=== PATIENT | female | born 1975 | race African-American/Black ===

== ENCOUNTER 2017-03-20 14:27 | Emergency (ER) | payer OTHER ==
[2015-02-03 12:33] VITALS: BP 150/86
== END 2017-03-20 15:51 | disposition left against medical advice (07) ==
LOC: ER 14:27
DX: R07.81 Pleurodynia (principal); Z53.21 Procedure and treatment not carried out due to patient leaving prior to being seen by health care provider

== ENCOUNTER 2018-08-13 08:40 | Emergency (ER) | payer OTHER ==
[~2018-08-13] VITALS: Ht 160 cm; Wt 92.1 kg
[2018-08-13 08:51] VITALS: BP 158/87
--- NOTE | 2018-08-13 09:24 | PHYS DOC ---
Past Medical History Past Medical History: Anemia, Hypertension, STD Past Surgical History: No Surgical History, Other Additional Past Surgical Histo: Laparoscopy Alcohol Use: Occasionally Drug Use: None Adult General Chief Complaint Chief Complaint: PELVIC PAIN HPI HPI Patient is a 43 year old female who presents with vaginal irritation, odor, and pelvic pain. She states that she has been sexually active with her partner for 6 months and that they have used condoms consistently until 3 days ago when they had unprotected intercourse for the first time. She is now concerned that "he gave me something" and states that she has experienced irritation, nondescript vaginal odor and right sided pelvic pain since that time. She is unsure if there has been any vaginal discharge but denies any bleeding. She has had a total of 5 lifetime sexual partners and has a remote history of being treated for what she thinks was chlamydia in the past. Patient denies nausea, vomiting or diarrhea but has had chronic constipation and fatigue that she believes is due to her iron deficient anemia. Her last menstrual period was last week and she does not use any contraceptives aside from when her and her partner use condoms. Review of Systems Review of Systems Constitutional: Reports fatigue. Denies fever or chills [] HENT: Denies nasal congestion or sore throat [] Respiratory: Denies cough or shortness of breath [] Cardiovascular: Denies chest pain or palpitations [] GI: Reports RLQ abdominal/pelvic pain and constipation. Denies nausea, vomiting, diarrhea. [] : Denies dysuria or hematuria [] Musculoskeletal: Denies back pain or joint pain [] Neurologic: Denies headache, focal weakness or sensory changes. [] Complete review of systems found to be within normal limits, except as documented in this note. Current Medications Current Medications Current Medications Medications (Trade) Dose Ordered Sig/Annalisa Start Time Stop Time Status Last Admin Dose Admin Azithromycin (Zithromax) 1,000 mg 1X ONCE 08/13/18 09:45 08/13/18 09:46 DC 08/13/18 09:48 1,000 MG Ceftriaxone Sodium (Rocephin Im) 250 mg 1X ONCE 08/13/18 09:45 08/13/18 09:46 DC 08/13/18 09:48 250 MG Ketorolac Tromethamine (Toradol 30mg Vial) 30 mg 1X ONCE 08/13/18 09:30 08/13/18 09:31 DC 08/13/18 09:48 30 MG Metronidazole (Flagyl) 500 mg 1X ONCE 08/13/18 11:15 08/13/18 11:21 DC 08/13/18 11:23 500 MG Allergies Allergies Allergies Coded Allergies Type Severity Reaction Last Updated Verified Penicillins Allergy Intermediate 08/13/18 Yes Physical Exam Physical Exam Constitutional: Well developed, well nourished, no acute distress, non-toxic appearance. [] HENT: Normocephalic, atraumatic, oropharynx moist [] Eyes: EOMI, conjunctiva normal, no discharge. [] Cardiovascular:Heart rate regular rhythm, no murmur [] Lungs & Thorax: Bilateral breath sounds clear to auscultation [] Abdomen: Bowel sounds present. Abdomen soft without rebound, rigidity, or guarding. Tenderness to palpation in RLQ, negative McBurney's point. [] Skin: Warm, dry, no erythema, no rash. [] Extremities: Radial pulses +2 b/l, dorsalis pedis +2 b/l, no swelling noted [] Neurologic: Alert and oriented, normal motor function, normal sensory function, no focal deficits noted. [] Psychologic: Affect normal, judgement normal, mood normal. 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 External genitalia normal. Vaginal mucosa well rugated without erythema. White mucoid discharge noted. Cervical os visualized without bleeding or cervicitis. No cervical motion tenderness. Adnexal tenderness present on right more than left. Ovaries palpated b/l. No adnexal masses palpated. Current Patient Data Vital Signs Vital Signs Date Time Temp Pulse Resp B/P (MAP) Pulse Ox O2 Delivery O2 Flow Rate FiO2 08/13/18 08:51 98.0 109 18 158/87 (110) 98 Room Air 98.0 Lab Values Laboratory Tests Test 08/13/18 09:15 08/13/18 10:00 POC Urine HCG, Qualitative Hcg negative (Negative) Urine Collection Type Unknown Urine Color Yellow Urine Clarity Clear Urine pH 6.0 Urine Specific [place] 1.025 Urine Protein Negative mg/dL (NEG-TRACE) Urine Glucose (UA) Negative mg/dL (NEG) Urine Ketones (Stick) Negative mg/dL (NEG) Urine Blood Negative (NEG) Urine Nitrite Negative (NEG) Urine Bilirubin Negative (NEG) Urine Urobilinogen Dipstick 1.0 mg/dL (0.2 mg/dL) Urine Leukocyte Esterase Trace (NEG) Urine RBC 0 /HPF (0-2) Urine WBC 1-4 /HPF (0-4) Urine Squamous Epithelial Cells Many /LPF Urine Bacteria Few /HPF (0-FEW) Urine Mucus Marked /LPF Microbiology 08/13/18 Wet Prep - Final, Complete Microbiology 08/13/18 Wet Prep - Final, Complete EKG EKG [] Radiology/Procedures Radiology/Procedures PROCEDURE: PELVIS W/TV Pelvic ultrasound to include transabdominal and transvaginal imaging 08/13/2018 CLINICAL HISTORY: Adnexal pain, right greater than left. TECHNIQUE: Using the distended urinary bladder as a sonographic window, a real-time ultrasound examination of the pelvis was performed. Additionally in an attempt to better evaluate the uterus and adnexa, a transvaginal ultrasound study was performed. Multiple images were obtained. FINDINGS: The uterus is within normal limits in size and echogenicity. It measures 9.0 x 6.2 x 4.4 cm in longitudinal, transverse, and AP dimensions. The endometrial echo complex measures 7 mm in thickness which is within normal limits. Both ovaries are within normal limits in size. The right ovary measures 3.4 x 2.2 x 2.8 cm in size. Left ovary measures 2.9 x 2.3 x 1.5 cm in size. Within the left ovary a 1.6 cm dominant follicle is seen. No adnexal mass is noted. No free fluid is seen. IMPRESSION: Negative study. Electronically signed by: Tutu López MD (08/13/2018 10:27 AM) [facility] Course & Med Decision Making Course & Med Decision Making Pertinent Labs and Imaging studies reviewed. (See chart for details) Patient is a 43 year old female presenting with vaginal irritation and odor following unprotected sex with a new partner 3 days ago. Pelvic exam revealed white vaginal discharge and mild right adnexal tenderness. UA negative. Wet mount showed altered bacterial eliecer suggestive of bacterial vaginosis. Transvaginal ultrasound negative. Patient opted to receive one time doses of azithromycin and ceftriaxone given her past history of chlamydia and current symptoms. She will be discharged home with Rx for metronidazole for suspected bacterial vaginosis and instructed to abstain from intercourse until completion of antibiotics. Patient instructed to followup with Dr. Hammer. Patient stable for discharge with outpatient follow-up with PCP/[facility]. Discussed findings and plan with patient, who acknowledges understanding and agreement. [] Dragon Disclaimer Dragon Disclaimer This electronic medical record was generated, in whole or in part, using a voice recognition dictation system. Departure Departure Impression: Primary Impression: Vaginal discharge Additional Impression: Pelvic pain Disposition: HOME, SELF-CARE Condition: STABLE Referrals: KAIA BIRD MD (PCP) MADELIN HAMMER Jr, MD Patient Instructions: Bacterial Vaginosis, [id number], Pelvic Pain, Female, [id number], Sexually Transmitted Disease, [id number] Additional Instructions: Use over the counter Tylenol and Ibuprofen for pain or discomfort Scripts Metronidazole (FLAGYL) 500 Mg Tablet 500 MG PO BID, #14 TAB Prov: WINSTON IVEY DO 08/13/18 Problem Qualifiers WINSTON IVEY DO August 13, 2018 09:24
[2018-08-13] MEDS ORDERED: KETOROLAC 30 MG/ML VIAL. IM ONE (09:30)
[2018-08-13] MEDS ORDERED: AZITHROMYCIN 250 MG TABLET. PO ONE (09:45)
[2018-08-13] MEDS ORDERED: cefTRIAXone IM 250 MG VIAL IM ONE (09:45)
--- NOTE | 2018-08-13 10:30 | RAD ---
Pelvic ultrasound to include transabdominal and transvaginal imaging 08/13/2018 CLINICAL HISTORY: Adnexal pain, right greater than left. TECHNIQUE: Using the distended urinary bladder as a sonographic window, a real-time ultrasound examination of the pelvis was performed. Additionally in an attempt to better evaluate the uterus and adnexa, a transvaginal ultrasound study was performed. Multiple images were obtained. FINDINGS: The uterus is within normal limits in size and echogenicity. It measures 9.0 x 6.2 x 4.4 cm in longitudinal, transverse, and AP dimensions. The endometrial echo complex measures 7 mm in thickness which is within normal limits. Both ovaries are within normal limits in size. The right ovary measures 3.4 x 2.2 x 2.8 cm in size. Left ovary measures 2.9 x 2.3 x 1.5 cm in size. Within the left ovary a 1.6 cm dominant follicle is seen. No adnexal mass is noted. No free fluid is seen. IMPRESSION: Negative study. Electronically signed by: Tutu López MD (08/13/2018 10:27 AM) [facility]
[2018-08-13] MEDS ORDERED: METR500T PO (11:10)
[2018-08-13 11:11] LABS: BILIRUBIN,URINE NEGATIVE (NEG); CLARITY,URINE CLEAR; COLOR,URINE YELLOW; NITRITE,URINE NEGATIVE (NEG); PROTEIN,URINE NEGATIVE (NEG-TRACE)
[2018-08-13 11:14] LABS: BACTERIA,URINE FEW /HPF (0-FEW); RBC,URINE 0 /HPF (0-2); SQUAMOUS EPITHELIAL CELL,UR MANY /LPF
[2018-08-13] MEDS ORDERED: metroNIDAZOLE 500 MG TABLET PO ONE (11:15)
[2018-08-15 13:15] LABS: GC PROBE Negative (Negative)
== END 2018-08-13 11:26 | disposition home or self-care (01) ==
LOC: ER 08:40
DX: N89.8 Other specified noninflammatory disorders of vagina (principal); K59.00 Constipation, unspecified; I10 Essential (primary) hypertension; Z86.2 Personal history of diseases of the blood and blood-forming organs and certain disorders involving the immune mechanism; Z88.0 Allergy status to penicillin
CPT/HCPCS: 76830; 76856; 81001; 81025; 87086; 87491; 87591; 96372; 99285; J0696; J1885; Q0111; Q0144

== ENCOUNTER → 2019-05-14 | Outpatient (CLI) | payer MEDICAID, OTHER ==
[~2019-05-14] MED LIST: METR500T PO
[2019-05-14 10:37] LABS: BASO % 1 % (0-3); EOS # 0.1 x10^3/uL (0.0-0.7); EOS % 3 % (0-3); HEMATOCRIT 36.4 % (36.0-47.0); HEMOGLOBIN 11.6 g/dL (12.0-15.5); LYMPH # 1.6 x10^3/uL (1.0-4.8); LYMPH % 37 % (24-48); MEAN CORPUSCULAR HEMOGLOBIN 26 pg (25-35); MEAN CORPUSCULAR HGB CONC 32 g/dL (31-37); MEAN CORPUSCULAR VOLUME 82 fL (79-100); MONO # 0.3 x10^3/uL (0.0-1.1); MONO % 8 % (0-9); NEUT # 2.2 x10^3/uL (1.8-7.7); NEUT % 51 % (31-73); PLATELET COUNT 271 x10^3/uL (140-400); RED BLOOD COUNT 4.42 x10^6/uL (3.50-5.40); RED CELL DISTRIBUTION WIDTH 14.6 % (11.5-14.5); WHITE BLOOD COUNT 4.3 x10^3/uL (4.0-11.0)
[2019-05-14 11:07] LABS: ALBUMIN 3.7 g/dL (3.4-5.0); ALBUMIN/GLOBULIN RATIO 0.9 (1.0-1.7); CALCIUM 9.4 mg/dL (8.5-10.1); CREATININE 0.7 mg/dL (0.6-1.0); GFR 109.5; POTASSIUM 3.8 mmol/L (3.5-5.1); TOTAL BILIRUBIN 0.4 mg/dL (0.2-1.0)
[2019-05-14 11:09] LABS: CHOLESTEROL/HDL RATIO 2.8
[2019-05-14 11:15] LABS: PLT ESTIMATE ADEQUATE (ADEQUATE)
--- NOTE | 2019-05-14 16:30 | RAD ---
CERVICAL SPINE 2-3V DATE: 05/14/2019 12:00 AM INDICATION: Chronic pain COMPARISON: None. FINDINGS: The cervical spine is visualized to the level of the cervicothoracic junction on the lateral views. Bones/Alignment: No evidence of acute fracture. Trace retrolisthesis at C5-6. Normal alignment of the lateral masses of C1 on C2. Joints: Moderate degenerative disc disease at C5-6, mild at the remaining levels. The facets are normally aligned. Soft tissue: No significant prevertebral soft tissue swelling. IMPRESSION: Cervical spondylosis, worst with moderate degenerative disc disease at C5-6. Electronically signed by: Herson Lindsey MD (05/14/2019 4:27 PM) [id number]
--- NOTE | 2019-05-14 16:31 | RAD ---
THORACIC SPINE 3V DATE: 05/14/2019 12:00 AM INDICATION: Chronic back pain COMPARISON: None. FINDINGS: The upper thoracic vertebrae are obscured on the lateral view by overlying soft tissue and osseous structures. Bones/Alignment: No evidence of acute compression fracture. No listhesis. Joints: Minimal degenerative disc disease. Miscellaneous: None. IMPRESSION: Minimal thoracic spondylosis. Electronically signed by: Herson Lindsey MD (05/14/2019 4:28 PM) [id number]
--- NOTE | 2019-05-14 16:36 | RAD ---
LUMBAR SPINE 2-3V DATE: 05/14/2019 12:00 AM INDICATION: Chronic back pain COMPARISON: None. FINDINGS: Five non-rib bearing lumbar-type vertebral bodies are present. Bones/Alignment: No evidence of acute compression fracture. There is no listhesis. Minimal left convex curvature centered at L3. Joints: Multilevel mild degenerative disc disease. Miscellaneous: None. IMPRESSION: Mild lumbar spondylosis. Electronically signed by: Herson Lindsey MD (05/14/2019 4:33 PM) [id number]
== END | disposition home or self-care (01) ==
LOC: RAD 09:29
PROVIDERS: ATTEND Internal Medicine Cardiovascular Disease
DX: M50.322 Other cervical disc degeneration at C5-C6 level (principal); M47.813 Spondylosis without myelopathy or radiculopathy, cervicothoracic region; M47.815 Spondylosis without myelopathy or radiculopathy, thoracolumbar region; M51.35 Other intervertebral disc degeneration, thoracolumbar region; I10 Essential (primary) hypertension; E78.2 Mixed hyperlipidemia; R53.83 Other fatigue
CPT/HCPCS: 36415; 72040; 72072; 72100; 80053; 80061; 83695; 84443; 85025; 86141; 86703; 86705; 86709; 86803; 87340

== ENCOUNTER → 2020-09-02 | Outpatient (CLI) | payer MEDICAID ==
[2020-09-02 10:45] LABS: BASO % 1 % (0-3); EOS # 0.1 x10^3/uL (0.0-0.7); EOS % 3 % (0-3); HEMOGLOBIN 11.3 g/dL (12.0-15.5); LYMPH # 1.5 x10^3/uL (1.0-4.8); LYMPH % 33 % (24-48); MEAN CORPUSCULAR HEMOGLOBIN 27 pg (25-35); MEAN CORPUSCULAR HGB CONC 32 g/dL (31-37); MEAN CORPUSCULAR VOLUME 83 fL (79-100); MONO # 0.3 x10^3/uL (0.0-1.1); MONO % 6 % (0-9); NEUT # 2.6 x10^3/uL (1.8-7.7); NEUT % 58 % (31-73); PLATELET COUNT 312 x10^3/uL (140-400); RED BLOOD COUNT 4.23 x10^6/uL (3.50-5.40); RED CELL DISTRIBUTION WIDTH 14.6 % (11.5-14.5); WHITE BLOOD COUNT 4.5 x10^3/uL (4.0-11.0)
[2020-09-02 11:10] LABS: ALBUMIN 3.7 g/dL (3.4-5.0); ALBUMIN/GLOBULIN RATIO 0.8 (1.0-1.7); CALCIUM 8.8 mg/dL (8.5-10.1); CREATININE 0.7 mg/dL (0.6-1.0); GFR 108.5; TOTAL BILIRUBIN 0.3 mg/dL (0.2-1.0); TOTAL PROTEIN 8.1 g/dL (6.4-8.2)
[2020-09-02 11:11] LABS: CHOLESTEROL/HDL RATIO 2.9
[2020-09-03 01:33] LABS: HEMOGLOBIN A1C 6.2 % (4.8-5.6)
== END ==
LOC: LAB 09:53
PROVIDERS: ATTEND Pediatrics
DX: E78.2 Mixed hyperlipidemia (principal); E55.9 Vitamin D deficiency, unspecified; D64.9 Anemia, unspecified; R73.9 Hyperglycemia, unspecified; I10 Essential (primary) hypertension
CPT/HCPCS: 80053; 80061; 82306; 83036; 83700; 85025; 86141

== ENCOUNTER → 2020-11-28 | Outpatient (CLI) | payer MEDICAID, OTHER ==
--- NOTE | 2020-11-28 13:37 | RAD ---
EXAM: Bilateral hands, 2 views. HISTORY: Pain. COMPARISON: None. FINDINGS: 2 views of both hands are obtained. There is no fracture, dislocation or subluxation. There is no radiodense foreign body. IMPRESSION: No acute osseous finding. Electronically signed by: Francisca Gregory MD (11/28/2020 1:34 PM) [id number]
== END ==
LOC: RAD 12:19
PROVIDERS: ATTEND Surgery
DX: M79.642 Pain in left hand (principal); M79.641 Pain in right hand; Z02.71 Encounter for disability determination
CPT/HCPCS: 73120-50